=== PATIENT | female | born 1990 | race Caucasian/White ===

== ENCOUNTER 2017-11-25 21:32 | Inpatient (IN) | payer OTHER ==
[2017-11-25] MEDS ORDERED: morphine SULFATE 4 MG/ML VIAL IVPUSH ONE (22:10)
[2017-11-25] MEDS ORDERED: ONDANSETRON 4 MG/2 ML VIAL IVPB ONE (22:29)
[2017-11-25] MEDS ORDERED: morphine SULFATE 4 MG/ML VIAL ONE (22:30)
[2017-11-25] MEDS ORDERED: ONDANSETRON 4 MG/2 ML VIAL ONE ×2 (22:30→22:31)
--- NOTE | 2017-11-25 22:32 | PDOC ---
Attending Attestation - Resident Resident Name: Hansel Bocanegra - ED Attending Attestation I have performed the following: I have examined & evaluated the patient, The case was reviewed & discussed with the resident, I agree w/resident's findings & plan, Exceptions are as noted - HPI HPI: 11/25/17 22:27 26-year-old female patient presents with pelvic pain. 8 days ago, the patient underwent elective D&C for 14 week secondary to reportedly placenta previa. Since then, the patient has been complaining about intermittent pelvic pain that has worsened the last 4 days. The patient had visited [facility] and had blood work and ultrasound performed yesterday. 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 She has been having such severe pain but no vaginal bleeding. Came into the ER for evaluation. - Physicial Exam PE: 11/25/17 22:32 GENERAL: Awake, alert, and fully oriented, uncomfortable appearing. HEAD: No signs of trauma EYES:EOMI, sclera anicteric, conjunctiva clear ENT: Auricles normal inspection, hearing grossly normal, nares patent NECK: Normal ROM, supple, ABDOMEN: Soft, suprapubic tenderness. EXTREMITIES: Normal range of motion, no edema. No clubbing or cyanosis. No cords, erythema, or tenderness NEUROLOGICAL: Cranial nerves II through XII grossly intact. SKIN: Warm, Dry, normal turgor, no rashes or lesions noted. - Medical Decision Making 11/25/17 22:33 Vital Signs Temp Pulse Resp BP Pulse Ox 98.8 F 88 19 138/76 100 11/25/17 21:44 11/25/17 21:44 11/25/17 21:44 11/25/17 21:44 11/25/17 21:44 I suspect the patient may potentially retained products of conception and hemorrhage which is causing her severe pain. We'll repeat the transvaginal ultrasound and consult supervisor shrimp [place] and gynecology for potential D&C. Treat pain , blood work. 11/25/17 22:45 As per ER resident, concerned for potential infectious etiology with some components of vaginal discharge. Will consult systems software developer and likely initiate IV antibiotics. 11/26/17 03:37 CBC, BMP 11/25/17 22:30 11/25/17 22:30 CMP Sodium 140 mmol/L (136-145) 11/25/17 22:30 Potassium 4.0 mmol/L (3.5-5.1) 11/25/17 22:30 Chloride 107 mmol/L (98-107) 11/25/17 22:30 Carbon Dioxide 24 mmol/L (21-32) 11/25/17 22:30 Anion Gap 9 (8-16) 11/25/17 22:30 BUN 13 mg/dL (7-18) 11/25/17 22:30 Creatinine 0.9 mg/dL (0.55-1.02) 11/25/17 22:30 Creat Clearance w eGFR > 60 (>60) 11/25/17 22:30 Random Glucose 93 mg/dL (74-106) 11/25/17 22:30 Calcium 9.5 mg/dL (8.5-10.1) 11/25/17 22:30 Total Bilirubin 1.2 mg/dL (0.2-1.0) H D 11/25/17 22:30 AST 406 U/L (15-37) H 11/25/17 22:30 ALT 295 U/L (12-78) H 11/25/17 22:30 Alkaline Phosphatase 178 U/L (45-117) H 11/25/17 22:30 Total Protein 8.0 g/dl (6.4-8.2) 11/25/17 22:30 Albumin 4.2 g/dl (3.4-5.0) 11/25/17 22:30 Beta HCG, Quant 97.5 mIU/ml 11/25/17 22:30 Patient's ultrasound demonstrated a right upper quadrant status post cholecystectomy with a dilated common bile duct, which radiology suspects may be physiologic. However, given the elevated LFTs and bilirubin and the dilated common bile duct, the patient should be admitted for an MRCP. The patient will require IV antibiotics. In addition, pelvic ultrasound demonstrates heterogeneous material suspicious of retained products of conception. Dr. Moya was consulted and will follow the case. We will need to ultimately admit the patient to hospital for both evaluation for elevated LFTs and for SENIOR TECHNICAL RECRUITER workup.
[2017-11-25 22:36] LABS: BASO % 0.5 % (0-2.0); EOS % 2.3 % (0-4.5); HEMATOCRIT 39.2 % (32.4-45.2); HEMOGLOBIN 13.1 GM/dL (10.7-15.3); LYMPH % 30.5 % (8-40); MCH 28.3 pg (25.7-33.7); MCHC 33.6 g/dl (32.0-36.0); MEAN CELL VOLUME 84.4 fl (80-96); MEAN PLT VOLUME 8.8 fl (7.5-11.1); MONO % 6.3 % (3.8-10.2); NEUT % 60.4 % (42.8-82.8); PLATELET COUNT 274 K/MM3 (134-434); RBC 4.64 M/mm3 (3.60-5.2); RDW 15.7 % (11.6-15.6); WHITE BLOOD COUNT 6.5 K/mm3 (4.0-10.0)
[2017-11-25 22:56] LABS: INR 1.14 (0.82-1.09); PROTHROMBIN TIME (PATIENT) 12.9 SEC (9.7-13.0)
[2017-11-25 22:58] LABS: ACTIVATED PTT 30.3 SECONDS (26.9-34.4)
[2017-11-25 23:09] LABS: ALBUMIN 4.2 g/dl (3.4-5.0); ANION GAP 9 (8-16); BILIRUBIN,TOTAL 1.2 mg/dL (0.2-1.0); CALCIUM 9.5 mg/dL (8.5-10.1); CHLORIDE 107 mmol/L (98-107); CO2 24 mmol/L (21-32); CREATININE 0.9 mg/dL (0.55-1.02); GLUCOSE,RANDOM 93 mg/dL (74-106); SGPT/ALT 295 U/L (12-78); SODIUM 140 mmol/L (136-145)
[2017-11-25 23:11] LABS: ALK PHOS 178 U/L (45-117); BLOOD UREA NITROGEN 13 mg/dL (7-18)
[2017-11-25 23:16] LABS: SGOT/AST 406 U/L (15-37)
[2017-11-25] MEDS ORDERED: morphine CARPU-JECT 4 MG/1 ML DISP.SYRIN IVPUSH ONE (23:55)
[2017-11-25] MEDS: SODIUM CHLORIDE 1,000 ML IV STA (23:56)
[2017-11-25] MEDS ORDERED: ONDANSETRON 4 MG/2 ML VIAL IVPUSH ONE (23:56)
[2017-11-26] MEDS: SODIUM CHLORIDE 1,000 ML IV STA
--- NOTE | 2017-11-26 00:06 | PDOC ---
History of Present Illness - General Chief Complaint: Pain Stated Complaint: Pain, Acute Time Seen by Provider: 11/25/17 21:54 History Source: Patient - History of Present Illness Initial Comments: 11/26/17 00:07 26F with pmh presents with pelvic pain. 8 days ago, the patient underwent elective D&C for 14 week secondary to reportedly placenta previa. Since then, the patient has been complaining about intermittent pelvic pain that has worsened the last 4 days. The patient had visited [facility] and had blood work and ultrasound performed yesterday. 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 But today she felt such intense spontaneous suprapubic cramping that she came to the Er for evaluation. Denies bleeding or discharge. . 11/26/17 01:19 11/26/17 01:46 Past History - Past Medical History Allergies/Adverse Reactions: Allergies Allergy/AdvReac Type Severity Reaction Status Date / Time No Known Allergies Allergy Verified 11/25/17 23:49 Home Medications: Ambulatory Orders Ciprofloxacin/Ciprofloxa HCl [Cipro Xr 500 mg Tablet] 500 mg PO DAILY 11/25/17 Oxycodone HCl/Acetaminophen [Percocet 10-325 mg Tablet] 1 each PO PRN PRN COPD: No - Suicide/Smoking/Psychosocial Hx Smoking History: Never smoked Have you smoked in the past 12 months: No Information on smoking cessation initiated: No Hx Alcohol Use: No Drug/Substance Use Hx: No Review of Systems - Review of Systems Able to Perform ROS?: Yes Is the patient limited Bhutanese proficient: No Constitutional: No: Symptoms Reported HEENTM: No: Symptoms Reported Respiratory: No: Symptoms reported, SOB with Exertion Cardiac (ROS): No: Symptoms Reported ABD/GI: Yes: See HPI. No: Symptoms Reported : Yes: See HPI All Other Systems: Reviewed and Negative *Physical Exam - Vital Signs Last Vital Signs Temp Pulse Resp BP Pulse Ox 98.8 F 88 19 138/76 100 11/25/17 21:44 11/25/17 21:44 11/25/17 21:44 11/25/17 21:44 11/25/17 21:44 - Physical Exam General Appearance: Yes: Nourished, Appropriately Dressed, Apparent Distress HEENT: positive: EOMI, WAYNE, Normal ENT Inspection Respiratory/Chest: positive: Lungs Clear, Normal Breath Sounds. negative: Chest Tender, Respiratory Distress Cardiovascular: positive: Regular Rhythm, Regular Rate, S1, S2 Female Pelvic Exam: positive: discharge (serosanguinous, milky pink discharge.) Gastrointestinal/Abdominal: positive: Normal Bowel Sounds, Tender (suprapubic and LLQ.) Musculoskeletal: positive: Normal Inspection. negative: CVA Tenderness Extremity: positive: Normal Capillary Refill Integumentary: positive: Normal Color, Dry, Warm Neurologic: positive: Fully Oriented, Alert, Normal Mood/Affect ED Treatment Course - LABORATORY CBC & Chemistry Diagram: 11/25/17 22:30 11/25/17 22:30 - ADDITIONAL ORDERS Additional order review: Laboratory Results 11/25/17 11/25/17 11/25/17 22:30 22:30 22:30 PT with INR 12.90 INR 1.14 PTT (Actin FS) 30.3 Sodium 140 Potassium 4.0 Chloride 107 Carbon Dioxide 24 Anion Gap 9 BUN 13 Creatinine 0.9 Creat Clearance w eGFR > 60 Random Glucose 93 Calcium 9.5 Total Bilirubin 1.2 H D AST 406 H ALT 295 H Alkaline Phosphatase 178 H Total Protein 8.0 Albumin 4.2 Beta HCG, Quant 97.5 Blood Type A POSITIVE Antibody Screen Negative 11/25/17 22:30 RBC 4.64 MCV 84.4 MCHC 33.6 RDW 15.7 H MPV 8.8 Neutrophils % 60.4 Lymphocytes % 30.5 Monocytes % 6.3 Eosinophils % 2.3 Basophils % 0.5 - RADIOLOGY Radiology Studies Ordered: Category Date Time Status ABDOMEN US -LIMITED [US] Stat Ultrasound 11/26/17 23:32 Ordered TRANSVAGINAL ULTRASOUND US [US] Stat Ultrasound 11/26/17 22:15 Ordered - Medications Given in the ED: ED Medications Discontinued Medications Generic Name Dose Route Start Last Admin Trade Name Freq PRN Reason Stop Dose Admin Diphenhydramine HCl 25 mg 11/25/17 22:29 11/25/17 22:49 Benadryl Injection - IVPUSH 11/25/17 22:30 25 mg ONCE ONE Administration Morphine Sulfate 4 mg 11/25/17 22:10 11/25/17 22:48 Morphine Sulfate IVPUSH 11/25/17 22:11 4 mg ONCE ONE Administration Ondansetron HCl 8 mg 11/25/17 22:29 11/25/17 22:49 Zofran Injection IVPB 11/25/17 22:30 8 mg ONCE ONE Administration Medical Decision Making - Medical Decision Making 11/26/17 02:08 As stated in us from yesterday it is very likely the patient may have retained some products of conception. Will repeat labs and TVUS. - Given that the patient has elevated liver enzymes we will extend the ultrasound order to include the upper right abdominal quadrant. - TVUS confirms apparent presence of blood material/products of conception. Started patient on Zosyn. Spoke to Dr. Moya who recommended admitting to hospitalist and seeing the patient tomorrow. We will order a Ct abdomen with contrast in the meantime to rule out iatrogenic uterine injury 11/26/17 02:24 11/26/17 03:54 Ct abdomen negative. Will admit. *DC/Admit/Observation/Transfer Diagnosis at time of Disposition: Incomplete - Discharge Dispostion Condition at time of disposition: Fair - Referrals - Patient Instructions - Post Discharge Activity
[2017-11-26] MEDS ORDERED: morphine SULFATE 4 MG/ML VIAL ONE ×2 (00:09→06:15)
[2017-11-26] MEDS ORDERED: ONDANSETRON 4 MG/2 ML VIAL ONE ×2 (00:09→06:15)
[2017-11-26] MEDS ORDERED: PIPERACILLIN/TAZOB 3.375 GM 3.375 GM in DEXTROSE 5%-WATER - 50 ML IVPB ONE (01:23)
--- NOTE | 2017-11-26 04:42 | PN ---
Teaching Attending Note Name of Resident: Terence Mcclain ATTENDING PHYSICIAN STATEMENT I saw and evaluated the patient. I reviewed the resident's note and discussed the case with the resident. I agree with the resident's findings and plan as documented. SUBJECTIVE: Patient is 26 year old woman who is presenting with lower abdominal pain for several days. Patient underwent elective 8 days ago for a 14 week secondary to reportedly placenta previa. She also reports hyperemesis gravidarum through the course of the . Patient went to [facility] yesterday and had blood work and ultrasound performed. Blood work showed no acute findings but the pelvic ultrasound demonstrated possible retained products of conception. 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 She has PMH of cholecystectomy 8 years ago as well as cholelithiasis. OBJECTIVE: Alert, in pain and very anxious. Vital Signs Period Temp Pulse Resp BP Sys/Briseno Pulse Ox Last 24 Hr 98.8 F 88 19 138/76 100 HEENT: No Jaundice, eye redness or discharge, PERRLA, EOMI. Normocephalic, atraumatic. External ears are normal and hearing is grossly intact. No nasal discharge. Neck: Supple, nontender. No palpable adenopathy or thyromegaly. No JVD Chest: Good effort. Clear to auscultation and percussion. Heart: Regular. No S3, rub or murmur Abdomen: Not distended, soft;tender lower abdomen; no HSM. No rebound or guarding. Normoactive bowel sounds. Ext: Peripheral pulses intact. No leg edema. Skin: Warm and dry. No petechiae, rash or ecchymosis. Neuro: Alert. Oriented x3. CN 2-12 grossly intact. Sensation grossly intact in all four extremities and DTR are symmetric. Home Medications Medication Instructions Recorded Ciprofloxacin/Ciprofloxa HCl 500 mg PO DAILY 11/25/17 [Cipro Xr 500 mg Tablet] Oxycodone HCl/Acetaminophen 1 each PO PRN PRN 11/25/17 [Percocet 10-325 mg Tablet] Home Medications Medication Instructions Recorded Ciprofloxacin/Ciprofloxa HCl 500 mg PO DAILY 11/25/17 [Cipro Xr 500 mg Tablet] Oxycodone HCl/Acetaminophen 1 each PO PRN PRN 11/25/17 [Percocet 10-325 mg Tablet] Abnormal Lab Results 11/25/17 11/25/17 22:30 22:30 RDW 15.7 H Total Bilirubin 1.2 H D AST 406 H ALT 295 H Alkaline Phosphatase 178 H ASSESSMENT AND PLAN: 1. Incomplete - CT scan of abdomen and pelvis was done as well as a vaginal sonogram showing retained products of conception. Sepsis workup is being done and will treat her with Cefoxitin 2 gm IV q 6 hours and Doxycycline 100mg po q 12 hours for possible Septic complicating her incomplete . Obstetrics consult being requested for possible D&C. Will get EKG and give IV NS 100ml/hour, morphine for pain control and zofran PRN, and keep her NPO. 2. Elevated LFTs - Likely due to hyperemesis gravidarum, but willl do hepatitis serology. CT abdomen is unrevealing. Monitor LFTs. Will consult GI if it fails to resolve, in view of history of cholelithiasis. 3. DVT prophylaxis - Heparin 5000u sq tid 4. Advance directives - Full code
--- NOTE | 2017-11-26 04:46 | PDOC ---
*Physical Exam - Vital Signs Last Vital Signs Temp Pulse Resp BP Pulse Ox 98.8 F 88 19 138/76 100 11/25/17 21:44 11/25/17 21:44 11/25/17 21:44 11/25/17 21:44 11/25/17 21:44 ED Treatment Course - LABORATORY CBC & Chemistry Diagram: 11/25/17 22:30 11/25/17 22:30 - ADDITIONAL ORDERS Additional order review: Laboratory Results 11/25/17 11/25/17 11/25/17 22:30 22:30 22:30 PT with INR 12.90 INR 1.14 PTT (Actin FS) 30.3 Sodium 140 Potassium 4.0 Chloride 107 Carbon Dioxide 24 Anion Gap 9 BUN 13 Creatinine 0.9 Creat Clearance w eGFR > 60 Random Glucose 93 Calcium 9.5 Total Bilirubin 1.2 H D AST 406 H ALT 295 H Alkaline Phosphatase 178 H Total Protein 8.0 Albumin 4.2 Beta HCG, Quant 97.5 Blood Type A POSITIVE Antibody Screen Negative 11/25/17 22:30 RBC 4.64 MCV 84.4 MCHC 33.6 RDW 15.7 H MPV 8.8 Neutrophils % 60.4 Lymphocytes % 30.5 Monocytes % 6.3 Eosinophils % 2.3 Basophils % 0.5 - Medications Given in the ED: ED Medications Discontinued Medications Generic Name Dose Route Start Last Admin Trade Name Rosa PRN Reason Stop Dose Admin Diphenhydramine HCl 25 mg 11/25/17 22:29 11/25/17 22:49 Benadryl Injection - IVPUSH 11/25/17 22:30 25 mg ONCE ONE Administration Fentanyl 25 mcg 11/26/17 01:31 11/26/17 02:18 Sublimaze Injection - IVPUSH 11/26/17 01:32 25 mcg ONCE ONE Administration Sodium Chloride 1,000 mls @ 1,000 mls/hr 11/25/17 23:52 11/25/17 23:56 Normal Saline - IV 11/26/17 00:51 1,000 mls/hr ASDIR STA Administration Piperacillin Sod/Tazobactam 50 mls @ 100 mls/hr 11/26/17 01:23 11/26/17 02:18 Sod 3.375 gm/ Dextrose IVPB 11/26/17 01:52 100 mls/hr ONCE ONE Administration Protocol Morphine Sulfate 4 mg 11/25/17 22:10 11/25/17 22:48 Morphine Sulfate IVPUSH 11/25/17 22:11 4 mg ONCE ONE Administration Morphine Sulfate 4 mg 11/25/17 23:55 11/26/17 00:13 Morphine Injection - IVPUSH 11/25/17 23:56 4 mg ONCE ONE Administration Ondansetron HCl 8 mg 11/25/17 22:29 11/25/17 22:49 Zofran Injection IVPB 11/25/17 22:30 8 mg ONCE ONE Administration Ondansetron HCl 4 mg 11/25/17 23:56 11/26/17 00:13 Zofran Injection IVPUSH 11/25/17 23:57 4 mg ONCE ONE Administration *DC/Admit/Observation/Transfer Diagnosis at time of Disposition: Retained products of conception, Elevated LFTs - Discharge Dispostion Condition at time of disposition: Fair Decision to Admit order: Yes - Referrals - Patient Instructions - Post Discharge Activity
[2017-11-26] MEDS ORDERED: SODIUM CHLORIDE 1,000 ML IV SCH (05:30)
[2017-11-26] MEDS ORDERED: ONDANSETRON 4 MG/2 ML VIAL IVPUSH PRN (05:40)
[2017-11-26] MEDS ORDERED: CEFOXITIN SODIUM 2 GM in DEXTROSE 5%-WATER 100 ML IVPB ONE (06:00)
[2017-11-26] MEDS ORDERED: DOXYCYCLINE HYCLATE 100 MG CAPSULE PO SCH ×2 (06:00→06:15)
[2017-11-26] MEDS ORDERED: DOXYCYCLINE HYCLATE 100 MG CAPSULE PO ONE (06:11)
--- NOTE | 2017-11-26 06:21 | HP ---
CHIEF COMPLAINT: abdominal pain PCP: HISTORY OF PRESENT ILLNESS: The patient is a 26 yo f w/ PMH cholecystitis s/p cholecystectomy who comes into the ED c/o Abdominal pain. 8 dyas ago, the patient underwent elective D&C of a 14 week . The patient states that she underwent to procedure because the placenta was attached to the site of a previous C section scar, causing pain and the risk of uterine rupture. Since the procedure, the patient has been experiencing worsening, intermittent pelvic pain. Yesterday, the patient went to [facility] ER; an US there showed a 50mm endometrium suspicious for possible retained products of conception. She was discharged with instructions to f/u w/ OB as an outpatient w/ scheduled D&C Wednesday. Today , the patient's pain was so severe that she presented to the ER for evaluation. Patient also endorses vaginal discharge Patent denies chest pain, SOB, fevers, chills. ER course was notable for: (1) Transvaginal US showing 16mm endometrium suspicious for retained POC (2) Abd US showing s/o cholecystectomy and dilated CBD (3) CT abd showing hepatosplenomegaly (4) AST 406, ALT 295, ALP 178, Tbili 1.2 Recent Travel: none PAST MEDICAL HISTORY: Colelithiasis PAST SURGICAL HISTORY: Cholecystectomy 2009 Social History: Smoking: never smoker Alcohol: social drinker Drugs: denies Family History: non-contributory Allergies No Known Allergies Allergy (Verified 11/25/17 23:49) HOME MEDICATIONS: Home Medications Medication Instructions Recorded Ciprofloxacin/Ciprofloxa HCl 500 mg PO DAILY 11/25/17 [Cipro Xr 500 mg Tablet] Oxycodone HCl/Acetaminophen 1 each PO PRN PRN 11/25/17 [Percocet 10-325 mg Tablet] REVIEW OF SYSTEMS CONSTITUTIONAL: Absent: fever, chills, diaphoresis, generalized weakness, malaise, loss of appetite, weight change HEENT: Absent: rhinorrhea, nasal congestion, throat pain, throat swelling, difficulty swallowing, mouth swelling, ear pain, eye pain, visual changes CARDIOVASCULAR: Absent: chest pain, syncope, palpitations, irregular heart rate, lightheadedness , peripheral edema RESPIRATORY: Absent: cough, shortness of breath, dyspnea with exertion, orthopnea, wheezing, stridor, hemoptysis GASTROINTESTINAL: Absent: abdominal distension, nausea, vomiting, diarrhea, constipation, melena, hematochezia GENITOURINARY: Absent: dysuria, frequency, urgency, hesitancy, hematuria, flank pain MUSCULOSKELETAL: Absent: myalgia, arthralgia, joint swelling, back pain, neck pain SKIN: Absent: rash, itching, pallor HEMATOLOGIC/IMMUNOLOGIC: Absent: easy bleeding, easy bruising, lymphadenopathy, frequent infections ENDOCRINE: Absent: unexplained weight gain, unexplained weight loss, heat intolerance, cold intolerance NEUROLOGIC: Absent: headache, focal weakness or paresthesias, dizziness, unsteady gait, seizure, mental status changes, bladder or bowel incontinence PSYCHIATRIC: Absent: anxiety, depression, suicidal or homicidal ideation, hallucinations. PHYSICAL EXAMINATION Vital Signs - 24 hr 11/25/17 21:44 Temperature 98.8 F Pulse Rate 88 Respiratory 19 Rate Blood Pressure 138/76 O2 Sat by Pulse 100 Oximetry (%) GENERAL: Awake, alert, and fully oriented, in no acute distress. HEAD: Normal with no signs of trauma. EYES: Pupils equal, round and reactive to light, extraocular movements intact, sclera anicteric, conjunctiva clear. No lid lag. LUNGS: Breath sounds equal, clear to auscultation bilaterally. No wheezes, and no crackles. No accessory muscle use. HEART: Regular rate and rhythm, normal S1 and S2 without murmur, rub or gallop. ABDOMEN: Soft, not distended, normoactive bowel sounds, no guarding, no rebound. There is tenderness to palpation in the lower quadrants and the suprapubic area. The fundus of the uterus can be felt and is enlarged, soft and smooth. LOWER EXTREMITIES: 2+ pulses, warm, well-perfused. No calf tenderness. No peripheral edema. NEUROLOGICAL: Cranial nerves II-X intact. Normal speech. PSYCHIATRIC: Cooperative. Good eye contact. Appropriate mood and affect. SKIN: Warm, dry, normal turgor, no rashes or lesions noted, normal capillary refill. Laboratory Results - last 24 hr 11/25/17 11/25/17 11/25/17 22:30 22:30 22:30 WBC 6.5 RBC 4.64 Hgb 13.1 Hct 39.2 MCV 84.4 MCH 28.3 MCHC 33.6 RDW 15.7 H Plt Count 274 MPV 8.8 Absolute Neuts (auto) 3.9 Neutrophils % 60.4 Lymphocytes % 30.5 Monocytes % 6.3 Eosinophils % 2.3 Basophils % 0.5 Nucleated RBC % 0 PT with INR 12.90 INR 1.14 PTT (Actin FS) 30.3 Sodium 140 Potassium 4.0 Chloride 107 Carbon Dioxide 24 Anion Gap 9 BUN 13 Creatinine 0.9 Creat Clearance w eGFR > 60 Random Glucose 93 Calcium 9.5 Total Bilirubin 1.2 H D AST 406 H ALT 295 H Alkaline Phosphatase 178 H Total Protein 8.0 Albumin 4.2 Beta HCG, Quant 97.5 Blood Type Antibody Screen 11/25/17 22:30 WBC RBC Hgb Hct MCV MCH MCHC RDW Plt Count MPV Absolute Neuts (auto) Neutrophils % Lymphocytes % Monocytes % Eosinophils % Basophils % Nucleated RBC % PT with INR INR PTT (Actin FS) Sodium Potassium Chloride Carbon Dioxide Anion Gap BUN Creatinine Creat Clearance w eGFR Random Glucose Calcium Total Bilirubin AST ALT Alkaline Phosphatase Total Protein Albumin Beta HCG, Quant Blood Type A POSITIVE Antibody Screen Negative ASSESSMENT/PLAN: The patient is a 26 yo f w/ pmh Cholelithiasis c/o abdominal pain and found to have elevated LFTs. #Abdominal pain and vaginal discharge 2/2 incomplete -OBGYN consult; Dr. Noel aware -NPO -pre-op labs -zofran q4h PRN nausea -EKG -Morphine 4mg Q4h PRN pain -Cefoxitin 2g IV Q6H -Doxycycline 100mg PO Q12h -NS@75 -NPO for possible procedure #Elevated LFTs possibly 2/2 cholelithiasis -GI consult -Hepatitis panel #FEN -NS@75 -lytes WNL, replete PRN -NPO #Prophy -SCDs #Dispo -admit med surg Visit type - Emergency Visit Emergency Visit: Yes Care time: The patient presented to the Emergency Department on the above date and was hospitalized for further evaluation of their emergent condition. - New Patient This patient is new to me today: Yes Date on this admission: 11/26/17 - Critical Care Critical Care patient: No Hospitalist Screening - Colonoscopy Questionnaire Colonoscopy Questionnaire: Colonoscopy Questionnaire - Patient: 50 - 75 years old and never had a screening colonoscopy: No History of colon or rectal polyps, or CA: Unknown History of IBD, Crohn's disease or UC: Unknown History of abdominal radiation therapy as a child: Unknown - Relative: 1 with colon or rectal CA, or polyps at age 60 or younger: Unknown Colon or rectal CA diagnosed at age 45 or younger: Unknown Multiple relatives with colon or rectal CA: Unknown - Outcome: Screening Result: Negative Screen
[2017-11-26] MEDS: morphine SULFATE 4 MG/ML VIAL IVPUSH PRN ×2 (06:23→10:08)
[2017-11-26 07:01] LABS: BASO % 0.6 % (0-2.0); EOS % 2.5 % (0-4.5); HEMATOCRIT 36.2 % (32.4-45.2); HEMOGLOBIN 12.4 GM/dL (10.7-15.3); LYMPH % 40.1 % (8-40); MCH 28.7 pg (25.7-33.7); MCHC 34.3 g/dl (32.0-36.0); MEAN CELL VOLUME 83.6 fl (80-96); MEAN PLT VOLUME 8.7 fl (7.5-11.1); MONO % 6.3 % (3.8-10.2); NEUT % 50.5 % (42.8-82.8); PLATELET COUNT 263 K/MM3 (134-434); RBC 4.32 M/mm3 (3.60-5.2); RDW 15.9 % (11.6-15.6); WHITE BLOOD COUNT 5.9 K/mm3 (4.0-10.0)
[2017-11-26 07:13] LABS: INR 1.14 (0.82-1.09); PROTHROMBIN TIME (PATIENT) 12.9 SEC (9.7-13.0)
[2017-11-26 07:16] LABS: ACTIVATED PTT 30.5 SECONDS (26.9-34.4)
[2017-11-26 07:28] LABS: ALBUMIN 3.8 g/dl (3.4-5.0); ANION GAP 9 (8-16); BILIRUBIN,TOTAL 1.6 mg/dL (0.2-1.0); BLOOD UREA NITROGEN 10 mg/dL (7-18); CALCIUM 9.2 mg/dL (8.5-10.1); CHLORIDE 110 mmol/L (98-107); CO2 21 mmol/L (21-32); CREATININE 0.8 mg/dL (0.55-1.02); GLUCOSE,RANDOM 100 mg/dL (74-106); MAGNESIUM 2.2 mg/dL (1.8-2.4); PHOSPHOROUS 4.7 mg/dL (2.5-4.9); POTASSIUM 4.1 mmol/L (3.5-5.1); SGOT/AST 367 U/L (15-37); SGPT/ALT 334 U/L (12-78); SODIUM 140 mmol/L (136-145); TOT PROT 7.2 g/dl (6.4-8.2)
[2017-11-26 07:29] LABS: ALK PHOS 201 U/L (45-117)
[2017-11-26 07:59] LABS: URINE COLOR YELLOW
[2017-11-26 08:02] LABS: URINE APPEARANCE CLEAR; URINE GLUCOSE (UA) NEGATIVE (NEGATIVE)
[2017-11-26 08:03] LABS: PH,URINE 5.5 (5.0-8.0); URINE BILIRUBIN SMALL (<2.0 mg/dL); URINE KETONE NEGATIVE (NEGATIVE); URINE LEUK ESTERASE NEGATIVE (NEGATIVE); URINE NITRITE NEGATIVE (NEGATIVE)
[2017-11-26 08:10] LABS: URINE BACTERIA RARE /hpf (NONE SEEN)
[2017-11-26 08:11] LABS: EPI CELLS MANY /HPF (FEW); URINE MUCUS RARE
[2017-11-26 08:16] VITALS: BMI 33.3
--- NOTE | 2017-11-26 08:28 | PN ---
Progress Note, Physician Chief Complaint: ID Full note dictated Pelvic pain even preceeding procedure - Current Medication List Current Medications: Active Medications Diphenhydramine HCl (Benadryl Injection -) 25 mg IVPUSH Q4H PRN PRN Reason: FOR ITCHING Last Admin: 11/26/17 07:04 Dose: 25 mg Doxycycline Hyclate (Vibramycin -) 100 mg PO BID@1000,1800 HEATHER Last Admin: 11/26/17 06:22 Dose: 100 mg Sodium Chloride (Normal Saline -) 1,000 mls @ 75 mls/hr IV ASDIR HEATHER Last Admin: 11/26/17 05:54 Dose: 75 mls/hr Cefoxitin Sodium 2 gm/ (Dextrose) 100 mls @ 200 mls/hr IVPB Q6H-IV HEATHER; Protocol Morphine Sulfate (Morphine Sulfate) 4 mg IVPUSH Q4H PRN PRN Reason: PAIN LEVEL 1-5 Last Admin: 11/26/17 06:23 Dose: 4 mg Ondansetron HCl (Zofran Injection) 4 mg IVPUSH Q4H PRN PRN Reason: NAUSEA Last Admin: 11/26/17 06:23 Dose: 4 mg - Objective Vital Signs: Vital Signs Temperature 98.4 F 11/26/17 08:15 Pulse Rate 65 11/26/17 08:15 Respiratory Rate 18 11/26/17 08:15 Blood Pressure 126/89 11/26/17 08:15 O2 Sat by Pulse Oximetry (%) 99 11/26/17 07:03 Constitutional: Yes: No Distress Cardiovascular: Yes: S1, S2 Respiratory: Yes: CTA Bilaterally Gastrointestinal: Yes: WNL, Normal Bowel Sounds, Soft, Other (pelvic pain ?? tenderness) Labs: CBC, BMP 11/26/17 06:47 11/26/17 06:47 INR, PTT INR 1.14 (0.82-1.09) 11/26/17 06:47 Problem List - Problems (1) Elevated LFTs Code(s): R79.89 - OTHER SPECIFIED ABNORMAL FINDINGS OF BLOOD CHEMISTRY (2) Retained products of conception Code(s): GLE0116 - Assessment/Plan Microbiology Laboratory Tests 11/26/17 11/26/17 11/26/17 06:47 06:47 06:47 WBC 5.9 Hgb 12.4 Plt Count 263 Total Bilirubin 1.6 H D Alkaline Phosphatase 201 H Ur Leukocyte Esterase Negative Hepatitis A IgM Ab Hep Bs Antigen Hep B Core IgM Ab Hepatitis C Antibody 11/26/17 06:47 WBC Hgb Plt Count Total Bilirubin Alkaline Phosphatase Ur Leukocyte Esterase Hepatitis A IgM Ab Pending Hep Bs Antigen Pending Hep B Core IgM Ab Pending Hepatitis C Antibody Pending Assssment Pelvic pain seem excessive NO fever and normal WBC argue against infection including PID though no objections to antibiotics ? 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
[2017-11-26 09:47] LABS: BILIRUBIN,DIRECT 0.7 mg/dL (0.0-0.2)
[2017-11-26 10:03] VITALS: PULSE 72
--- NOTE | 2017-11-26 10:13 | EKG ---
Test Reason : Blood Pressure : / mmHG Vent. Rate : 065 BPM Atrial Rate : 065 BPM P-R Int : 160 ms QRS Dur : 070 ms QT Int : 412 ms P-R-T Axes : 018 016 030 degrees QTc Int : 428 ms POOR DATA QUALITY, INTERPRETATION MAY BE ADVERSELY AFFECTED NORMAL SINUS RHYTHM NORMAL ECG NO PREVIOUS ECGS AVAILABLE Confirmed by ANKITA DENNY MD ([id number]) on 11/26/2017 10:13:21 AM Referred By: Confirmed By:ANKITA DENNY MD
--- NOTE | 2017-11-26 10:18 | CON.GI ---
Consult Consult Specialty:: Gastroenterology Referred by:: Dr. German Reason for Consultation:: Transaminitis - History of Present Illness Chief Complaint: Abdominal Pain History of Present Illness: Patient is a 26 year female with a PMHx of acute cholecystitis s/p cholecystectomy who presented for diffuse lower abdominal pain that started last week after her D&C of a 14 week . Patient reports she's had intermittent lower abdominal and pelvic pain since the but yesterday the pain became constant, severe and sharp in nature. She went to [facility] ED and had an U/S done which revealed possible retained products of conception but was discharged to follow up with OBGYN. However, patient's pelvic and abdominal pain worsened and was associated with vaginal bleeding, which prompted this hospital visit. Labs revealed transaminitis, however, patient reports that her labs in [facility] on that same day were within normal limits. Patient denies any previous colonoscopies or endoscopies Patient denies any fever, chills, vomiting, chest pain, palpitations, shortness of breath, headaches, dysuria, frequency, urgency Patient denies any joint pain, rash, jaundice, history of transfusion, history of IV drug use, autoimmune disease, hematuria, hematochezia, melena, hematemesis , diarrhea, constipation, bowel changes, change in diet, weight loss. 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 [employer] Place of : [employer] History of Recent Travel: No Home Medications - Allergies Allergies/Adverse Reactions: Allergies Allergy/AdvReac Type Severity Reaction Status Date / Time Penicillins Allergy Verified 11/26/17 10:20 - Home Medications Home Medications: Ambulatory Orders Ciprofloxacin/Ciprofloxa HCl [Cipro Xr 500 mg Tablet] 500 mg PO DAILY 11/25/17 Oxycodone HCl/Acetaminophen [Percocet 10-325 mg Tablet] 1 each PO PRN PRN Family Disease History - Family Disease History Family Disease History: Diabetes: Father Review of Systems - Review of Systems Constitutional: reports: No Symptoms. denies: Chills, Diaphoresis, Fever HENT: reports: No Symptoms. denies: Difficult Swallowing Cardiovascular: reports: No Symptoms. denies: Chest Pain, Palpitations, Shortness of Breath Respiratory: reports: No Symptoms. denies: Cough, Hemoptysis, SOB, SOB on Exertion, Wheezing Gastrointestinal: reports: Abdominal Pain, Nausea. denies: Constipation, Diarrhea, Dysphagia, Melena, Rectal Bleeding, Vomiting, Vomiting Blood Genitourinary: reports: No Symptoms. denies: Burning, Dysuria, Flank Pain Neurological: reports: No Symptoms. denies: Dizziness, Numbness Endocrine: reports: No Symptoms. denies: Excessive Sweating, Flushing, Intolerance to Heat Hematology/Lymphatic: reports: No Symptoms. denies: Easily Bruised Physical Exam-GI Vital Signs: Vital Signs Temperature 98.4 F 11/26/17 08:15 Pulse Rate 65 11/26/17 08:15 Respiratory Rate 18 11/26/17 08:15 Blood Pressure 126/89 11/26/17 08:15 O2 Sat by Pulse Oximetry (%) 99 11/26/17 07:03 Constitutional: Yes: Well Nourished, No Distress, Calm. No: Anxious, Diaphoresis Eyes: Yes: WNL, Conjunctiva Clear. No: Sclera Icterus HENT: Yes: WNL, Atraumatic, Normocephalic Neck: Yes: WNL, Supple, Trachea Midline. No: Tenderness Cardiovascular: Yes: WNL, Regular Rate and Rhythm. No: Bradycardia, Tachycardia , Pulse Irregular, Bruit, JVD Respiratory: Yes: WNL, Regular, CTA Bilaterally. No: Accessory Muscle Use, Cough, Diminished, Dullness, Wheezes Gastrointestinal Inspection: Yes: WNL, Scars (Horizontal suprapubic scar ( previous )). No: Ascites, Distention ...Auscultate: Yes: Hyperactive Bowel Sounds ...Palpate: Yes: Soft, Tenderness (Diffuse lower abdominal tenderness upon palpation). No: Firm/Rigid, Guarding, Splenomegaly ...Percussion: Yes: Dullness. No: Fluid Wave, Tympanitic ...Rectal Exam: Yes: Deferred Extremities: Yes: WNL. No: Calf Tenderness, Cold, Erythema Edema: No Peripheral Pulses WNL: Yes Neurological: Yes: WNL, Alert, Oriented Psychiatric: Yes: WNL, Alert, Oriented. No: Agitated, Suicidal Ideation Labs: 11/26/17 06:47 11/26/17 06:47 INR, PTT INR 1.14 (0.82-1.09) 11/26/17 06:47 Laboratory Tests 11/26/17 06:47 Total Bilirubin 1.6 H D Direct Bilirubin 0.7 H AST 367 H ALT 334 H Alkaline Phosphatase 201 H Imaging - Results Cat Scan: Image Reviewed Ultrasound: Report Reviewed Problem List - Problems (1) Transaminitis Assessment/Plan: Patient has history of cholecystitis s/p cholecystectomy but has elevated transaminitis within 12 hours. Patient has no RUQ abdominal pain but diffuse lower abdominal and pelvic pain with vaginal bleeding and Elevated bilirubin ( mainly unconjugated), which is more concerning for possible hemolysis. May order LDH for completion. However, will order MRCP to rule out Choledocholithiasis or cholestasis. Unimpressive CT abdomen. Will need to keep NPO. Hepatitis serology pending. Continue to monitor Hepatic Panel daily Code(s): R74.0 - NONSPEC ELEV OF LEVELS OF TRANSAMNS & LACTIC ACID DEHYDRGNSE (2) Retained products of conception Assessment/Plan: Patient currently not septic with no fevers or leukocytosis. As per ID, patient started on Cefoxitin. ID and OBGYN had discussion on whether patient should be transferred for possible D&C by interventional radiology as the etiology of LFT's is unclear but is likely not a biliary origin. Code(s): RLN7521 -
[2017-11-26] MEDS ORDERED: CEFOXITIN SODIUM 2 GM in DEXTROSE 5%-WATER - 100 ML IVPB SCH ×2 (11:15→15:00)
--- NOTE | 2017-11-26 11:55 | CONS ---
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 Prior to the dilatation and curettage, she had been experiencing pelvic pain noting that she had had 2 prior sections. Her pain continued and worsened over the last few days, and she was seen at [facility] yesterday morning where she apparently had normal lab work and an ultrasound performed. The blood work was reported once again as being normal, and the ultrasound demonstrated termination of and a heterogeneous 50-mm endometrium with possible retained products of conception versus blood versus infectious etiologies. 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 She had no fever, and her white count and differential were completely normal. For completeness, she was empirically treated with cefoxitin and doxycycline, and I am asked to see her for further evaluation. She reports a vaginal discharge, but denies any gross bleeding or purulent drainage. She is requiring narcotics to manage her pain. Note that the patients liver functions here were markedly elevated. She was not nauseous or vomiting, and notes a history of having had her gallbladder taken out previously. PHYSICAL EXAMINATION: General: She was a well-nourished appearing woman who appeared in pain when she changed position. Vital Signs: Her temperature was 98.6, pulse 72, blood pressure 123/80, respirations 18. Neck: Supple. Lungs: Clear to percussion and auscultation. Heart: S1, S2, regular rhythm, without murmur. Abdomen: Soft. Positive bowel sounds with tenderness on direct palpation throughout the lower abdominal area. Extremities: No clubbing, cyanosis, or edema. The white count was 5.9, hemoglobin 12.4, platelets 363. INR 1.1. Chemistries remarkable for a bilirubin of 1.6, AST of 367, ALT of 334, alkaline phosphatase of 201. The urinalysis had 3 WBCs and 16 RBCs with rare bacteria. Hepatitis screening currently negative. Currently available is the result of an abdominal ultrasound limited study showing a complex density within the endometrial cavity without definite vascular flow. The possibility of blood clots as well as retained products of conception is considered. An abdominal CT scan has been taken, but the report is still pending. ASSESSMENT: When I originally saw her, she had not yet been seen by Dr. Moya. I have since had the opportunity to speak with Dr. Moya, who was concerned about the possibility of a placental complication, which might necessitate either a dilatation and curettage and/or potentially a hysterectomy. Additionally, he was concerned about the possibility of hemorrhage in this clinical setting and recommended that the patient be transferred to [facility] or other tertiary care center for further evaluation and possible interventional radiology involvement procedure. With regard to infection clinically, she does not appear to have signs of infection by way of fever, white count, or left shift. That said, it seems reasonable to treat her with empiric antibiotic therapy, and she is currently on cefoxitin, which seems reasonable at this time. The etiology of her liver enzymes is also unclear and puzzling considering she had normal liver functions yesterday and clinically does not appear to have evidence of cholangitis at this time. She is in the process of being seen by Gastrointestinal GI, and a magnetic resonance cholangiopancreatography has been suggested. For now, would continue current antibiotics, blood and urine cultures have been sent, C-reactive protein could be obtained, and consideration of transfer to the medical center, possibly [facility] where she had the original dilatation and curettage. JACOBO ADKINS M.D. [id number]
[2017-11-26 12:03] LABS: LDH 281 U/L (84-246)
[2017-11-26] MEDS ORDERED: morphine SULFATE 4 MG/ML VIAL IVPUSH ONE (13:15)
[2017-11-26 14:55] VITALS: BP 105/76; TEMP 98.7
--- NOTE | 2017-11-26 18:23 | PN ---
Teaching Attending Note Name of Resident: Robbie Osorio ATTENDING PHYSICIAN STATEMENT I saw and evaluated the patient. I reviewed the resident's note and discussed the case with the resident. I agree with the resident's findings and plan as documented with exceptions below. SUBJECTIVE: Patient seen and examined. Still with severe pelvic pain, intermittent vaginal bleeding, denies any fevers, chills or foul smelling discharge. No nausea, vomiting,diarrhea. OBJECTIVE: Vital Signs Period Temp Pulse Resp BP Sys/Briseno Pulse Ox Last 24 Hr 98.4 F-98.8 F 65-89 18-19 105-138/76-89 98-100 Intake & Output 11/23/17 11/24/17 11/25/17 11/26/17 23:59 23:59 23:59 23:59 Intake Total 800 Balance 800 Weight 195 lb 194 lb General: ambulating in room, some distress from pain Abdomen: Soft, mild distension, neg Greenwood's sign, tenderness in pelvic region right above pubic bone all along, no tenderness otherwise, no voluntary or involuntary guarding or rigidity, positive bowel sounds, no CVA tenderness Extremities: no edema Chest: CTAB, no rales or wheezing Home Medications Medication Instructions Recorded Ciprofloxacin/Ciprofloxa HCl 500 mg PO DAILY 11/25/17 [Cipro Xr 500 mg Tablet] Oxycodone HCl/Acetaminophen 1 each PO PRN PRN 11/25/17 [Percocet 10-325 mg Tablet] Laboratory Results - last 24 hr 11/25/17 11/25/17 11/25/17 22:30 22:30 22:30 WBC 6.5 RBC 4.64 Hgb 13.1 Hct 39.2 MCV 84.4 MCH 28.3 MCHC 33.6 RDW 15.7 H Plt Count 274 MPV 8.8 Absolute Neuts (auto) 3.9 Neutrophils % 60.4 Lymphocytes % 30.5 Monocytes % 6.3 Eosinophils % 2.3 Basophils % 0.5 Nucleated RBC % 0 PT with INR 12.90 INR 1.14 PTT (Actin FS) 30.3 Sodium 140 Potassium 4.0 Chloride 107 Carbon Dioxide 24 Anion Gap 9 BUN 13 Creatinine 0.9 Creat Clearance w eGFR > 60 Random Glucose 93 Calcium 9.5 Phosphorus Magnesium Total Bilirubin 1.2 H D Direct Bilirubin AST 406 H ALT 295 H Alkaline Phosphatase 178 H LD Total C-Reactive Protein Total Protein 8.0 Albumin 4.2 Beta HCG, Quant 97.5 Urine Color Urine Appearance Urine pH Ur Specific [place] Urine Protein Urine Glucose (UA) Urine Ketones Urine Blood Urine Nitrite Urine Bilirubin Urine Urobilinogen Ur Leukocyte Esterase Urine WBC (Auto) Urine RBC (Auto) Ur Epithelial Cells Urine Bacteria Urine Mucus Blood Type Antibody Screen 11/25/17 11/26/17 11/26/17 22:30 06:47 06:47 WBC 5.9 RBC 4.32 Hgb 12.4 Hct 36.2 MCV 83.6 MCH 28.7 MCHC 34.3 RDW 15.9 H Plt Count 263 MPV 8.7 Absolute Neuts (auto) 3.0 Neutrophils % 50.5 Lymphocytes % 40.1 H D Monocytes % 6.3 Eosinophils % 2.5 Basophils % 0.6 Nucleated RBC % 0 PT with INR INR PTT (Actin FS) Sodium Potassium Chloride Carbon Dioxide Anion Gap BUN Creatinine Creat Clearance w eGFR Random Glucose Calcium Phosphorus Magnesium Total Bilirubin Direct Bilirubin AST ALT Alkaline Phosphatase LD Total C-Reactive Protein Total Protein Albumin Beta HCG, Quant Urine Color Yellow Urine Appearance Clear Urine pH 5.5 Ur Specific [place] 1.010 Urine Protein 100 mg/dl Urine Glucose (UA) Negative Urine Ketones Negative Urine Blood 3+ H Urine Nitrite Negative Urine Bilirubin Small Urine Urobilinogen 2.0 H Ur Leukocyte Esterase Negative Urine WBC (Auto) 3 Urine RBC (Auto) 16 Ur Epithelial Cells Many Urine Bacteria Rare Urine Mucus Rare Blood Type A POSITIVE Antibody Screen Negative 11/26/17 11/26/17 11/26/17 06:47 06:47 06:47 WBC RBC Hgb Hct MCV MCH MCHC RDW Plt Count MPV Absolute Neuts (auto) Neutrophils % Lymphocytes % Monocytes % Eosinophils % Basophils % Nucleated RBC % PT with INR 12.90 INR 1.14 PTT (Actin FS) 30.5 Sodium 140 Potassium 4.1 Chloride 110 H Carbon Dioxide 21 Anion Gap 9 BUN 10 Creatinine 0.8 Creat Clearance w eGFR > 60 Random Glucose 100 Calcium 9.2 Phosphorus 4.7 Magnesium 2.2 Total Bilirubin 1.6 H D Direct Bilirubin 0.7 H Cancelled AST 367 H ALT 334 H Alkaline Phosphatase 201 H LD Total 281 H C-Reactive Protein 0.8 H Total Protein 7.2 Albumin 3.8 Beta HCG, Quant Urine Color Urine Appearance Urine pH Ur Specific [place] Urine Protein Urine Glucose (UA) Urine Ketones Urine Blood Urine Nitrite Urine Bilirubin Urine Urobilinogen Ur Leukocyte Esterase Urine WBC (Auto) Urine RBC (Auto) Ur Epithelial Cells Urine Bacteria Urine Mucus Blood Type Antibody Screen 11/26/17 11/26/17 10:45 11:45 WBC RBC Hgb Hct MCV MCH MCHC RDW Plt Count MPV Absolute Neuts (auto) Neutrophils % Lymphocytes % Monocytes % Eosinophils % Basophils % Nucleated RBC % PT with INR INR PTT (Actin FS) Sodium Potassium Chloride Carbon Dioxide Anion Gap BUN Creatinine Creat Clearance w eGFR Random Glucose Calcium Phosphorus Magnesium Total Bilirubin Direct Bilirubin AST ALT Alkaline Phosphatase LD Total Cancelled C-Reactive Protein Cancelled Total Protein Albumin Beta HCG, Quant Urine Color Urine Appearance Urine pH Ur Specific [place] Urine Protein Urine Glucose (UA) Urine Ketones Urine Blood Urine Nitrite Urine Bilirubin Urine Urobilinogen Ur Leukocyte Esterase Urine WBC (Auto) Urine RBC (Auto) Ur Epithelial Cells Urine Bacteria Urine Mucus Blood Type Antibody Screen Abdominal/transvaginal US/CT A/p results noted. ASSESSMENT AND PLAN: 26 yof with pMHx of cholecystectomy, elective 8 days ago for 14 weeks , admitted with lower abdominal pain, and concerns for retained products of conception. -Lower abdominal pain -Concern for retained products of conception -Near syncope, from severe pain as above -Abnormal LFTs Plan: Patient seen by Dr. Moya, as discussed with him, concerns for placente accreta and D&C with high risk for bleed and recommended at a tertiary care center in case IR guided embolization and active intervention needed. Case discussed by Dr. Moya with Dr. Smart at [facility] and patient accepted for transfer and transfer arranged. Transfer to [facility] now for further care, discussed with patient and agreable. GI input noted. 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 Patient aware of abnormal LFTs and need for monitoring and further testing once acute issues have improved. Currently with no RUQ tenderness, fevers/chills or leucocytosis. D/c to [facility], transfer arranged. Plan discussed with patient in detail, all questions answered.
--- NOTE | 2017-11-27 12:11 | DS ---
Physical Exam: SUBJECTIVE: Patient seen and examined at bedside. Complained of lower abdominal pain. OBJECTIVE: Vital Signs Period Temp Pulse Resp BP Sys/Brisneo Pulse Ox Last 24 Hr 98.7 F 72 18 105/76 PHYSICAL EXAM Gen: Lying in bed, uncomfortable HEENT: NCAT, PERRLA, EOMI Neck: supple, no JVD Cardiac: rrr, norm s1s2, no m/r/g Lungs: cta b/l Abd: very tender to palpation in RLQ, suprapubic, LLQ. No RUQ tenderness, Greenwood 's negative. + bs. soft abdomen ext: 2+ pulses, no edema neuro: no focal deficits. 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 She was taken to the ED and later admitted. Pt had an elective D&C of a 14 week 10 days prior at a [facility] in the [place]. During her ED visit, she had a transvaginal u/s which was halted due to pain but did show possible retained products of conception. Pt described intermittent vaginal bleeding throughout the day. OBGYN was called and felt she would likely need a repeat D&C. However, due to concern about her possibly bleeding during the procedure, it was felt that the procedure would be safer if done at a facility with more IR support. The patient was transferred to [facility] under the care of Dr. Smart. During her stay she was treated with Zofran, Morphine, Cefoxitin, Doxycycline, and NS. She had incidentally found elevated LFTs. These were possibly due to cholelithiasis. However, pt had no RUQ pain whatsoever, and it was felt that due to her pressing gynecological issues she should be transferred and her liver enzyme workup could be completed at [facility]. Pt was in NAD and stable for transfer. Minutes to complete discharge: 30 Discharge Summary Reason For Visit: RETAINED PRODUCTS OF CONCEPTION ELEVATED Condition: Fair - Instructions Disposition: TRANSFER ACUTE CARE/OTHER HOSP - Home Medications Comprehensive Discharge Medication List: Ambulatory Orders Ciprofloxacin/Ciprofloxa HCl [Cipro Xr 500 mg Tablet] 500 mg PO DAILY 11/25/17 Oxycodone HCl/Acetaminophen [Percocet 10-325 mg Tablet] 1 each PO PRN PRN This patient is new to me today: Yes Date on this admission: 11/27/17 Emergency Visit: No Critical Care patient: No - Discharge Referral Referred to [facility] Med P.C.: No
[2017-11-28 06:41] LABS: HEP.C VIRUS AB 0.1 s/co ratio (0.0-0.9)
--- NOTE | 2017-11-28 13:41 | CONS ---
DATE OF CONSULTATION: 11/27/2017 REASON FOR CONSULTATION: Pelvic pain, rule out retained products of conception. The patient is a 26-year-old 7, para 1 with a past medical history of cholecystitis, status post cholecystectomy who presented to the emergency room complaining of abdominal pain for 48 hours. She has had a D&C for the 14 weeks termination of for placenta previa. She subsequently was seen in the [facility] ER with abdominal pain. She had a sonogram which showed the possibility of retained products of conception. She came to the emergency room at [facility] complaining of severe lower abdominal pain which required morphine. No fevers and no active vaginal bleeding. On admission her white count was normal. Hemoglobin and hematocrit was at 12.4 and 36.2 and her WBC was 6.5. She had elevated liver enzymes; AST was 406 on admission and ALT was 295 with direct right bilirubin of 1.2. Her CAT scan of the pelvis has showed nonspecific heterogeneous material seen in the endometrial cavity and there is a somewhat heterogeneous nonspecific myometrial contrast enhancement. Partial visualization of the appendix and the patients liver and pancreas did not show any abnormality. PHYSICAL EXAMINATION: On examination abdomen was soft but tender in the bilateral lower abdominal area. The patient was on an antibiotic when I saw her. ASSESSMENT AND PLAN: In view that the patient had had termination of at 14 weeks for placenta previa, the possibility of placenta accreta with retained products of conception could not be ruled out. Therefore, the patient was advised to be transfused to [facility] for evaluation of the elevated liver enzymes and also to be evaluated for the possibility of retained products of conception to rule out placenta accreta. The risks of bleeding with a dilatation and curettage were discussed with the patient. The patient agreed to be transferred and a transfer arrangement was made and the patient was transferred to [facility]. Baudilio [id number]
== END 2017-11-26 15:15 | disposition short-term general hospital (02) | DRG 564 ==
LOC: JER 21:32 → SUPCPDRO 21:32 → JERBED 11-26 06:27 → J6S 11-26 07:57
PROVIDERS: ADMIT Internal Medicine; ATTEND Hospitalist
DX: O03.4 Incomplete spontaneous abortion without complication (principal); R16.2 Hepatomegaly with splenomegaly, not elsewhere classified; R74.0 Nonspecific elevation of levels of transaminase and lactic acid dehydrogenase [LDH]; R74.8 Abnormal levels of other serum enzymes
CPT/HCPCS: 36415; 74177-TC; 76705-TC; 76830-TC; 80053; 80074; 81003; 81015; 82248; 83615; 83735; 84100; 84702; 85025; 85610; 85730; 86140; 86850; 86900; 86901; 87040; 93005; 93010; 99284-25; J7030